=== PATIENT | female | born 1995 | race Asian ===

== ENCOUNTER 2024-03-17 00:10 | Inpatient (IN) | payer OTHER ==
[2024-03-17 00:39] VITALS: BMI 28.1
[2024-03-17] MEDS ORDERED: Ondansetron PF 4 MG/2 ML Vial IVP PRN (01:45)
[2024-03-17] MEDS ORDERED: Carboprost 250 MCG/ML AMP IM PRN (01:45)
[2024-03-17] MEDS ORDERED: Promethazine HCl 25 MG/ML VIAL IM PRN ×2 (01:45→11:49)
[2024-03-17] MEDS ORDERED: hydrALAZINE 20 MG/ML VIAL SLOW IVP PRN (01:45)
[2024-03-17] MEDS ORDERED: fentaNYL 50 mcg/mL 1 mL Vial SLOW IVP PRN (01:45)
[2024-03-17] MEDS ORDERED: Lidocaine 1% (PF) 30 ML VIAL SC PRN (01:45)
[2024-03-17] MEDS ORDERED: Acetaminophen 500 MG TAB PO PRN (01:45)
[2024-03-17] MEDS ORDERED: Diphenoxylate HCl/Atropine Tablet PO PRN ×2 (01:45)
[2024-03-17 04:25] LABS: Hematocrit 35.3 % (34.9-44.5); Hemoglobin 12.2 g/dL (12.0-15.5); Mean Corpuscular HGB CONC 34.6 g/dL (32.0-36.0); Mean Corpuscular Volume 86.7 fL (81.6-98.3); Mean Platelet Volume 9.9 fL (7.4-10.4); Platelet Count 202 10x3/uL (150-450); RBC Distribution Width 13.3 % (11.5-14.5); Red Blood Cell (RBC) Count 4.07 10x6/uL (3.90-5.03); White Blood Cell (WBC) Count 11.13 10x3/uL (3.5-10.5)
[2024-03-17 04:54] LABS: HBsAg Index 0.15 S/CO (0-0.99); Hep B Surf Ag - L&D Non-Reactive S/CO (NonReactive)
[2024-03-17 04:55] LABS: Syphilis Antibody Nonreactive (Nonreactive); Syphilis Antibody Index 0.05 S/CO (<1.00 Non-Reactive)
[2024-03-17] MEDS: Oxytocin 30 units/NS 500 ML 500 ML IV SCH ×2 (06:25→23:49)
[2024-03-17] MEDS: Lactated Ringer's 1,000 ML IV SCH ×2 (07:14)
[2024-03-17] MEDS: fentaNYL/Ropivacaine Epidural 100 ML ONE (11:20)
[2024-03-17] MEDS ORDERED: diphenhydrAMINE 50 MG/ML VIAL IVP PRN (11:49)
[2024-03-17] MEDS ORDERED: Moisturizing Cream (Eucerin) 113 GM JAR TOP PRN (11:49)
[2024-03-17] MEDS ORDERED: Lactated Ringer's 500 ML IV PRN (11:49)
[2024-03-17] MEDS ORDERED: ePHEDrine Sulfate 50 MG/10 ML VIAL SLOW IVP PRN (11:49)
[2024-03-17] MEDS ORDERED: Naloxone HCl 0.4 mg/ml Vial IVP PRN ×2 (11:49)
[2024-03-17] MEDS ORDERED: Communication Order-Pharmacy FS SCH (12:00)
[2024-03-17] MEDS ORDERED: fentaNYL 2 mcg/Ropivacaine 0.2% Epidural 100 ML CADD EPIDURAL SCH (12:00)
[2024-03-17] MEDS ORDERED: Pseudoephedrine HCl 30 MG TAB PO PRN (18:13)
[2024-03-17] MEDS: Calcium Carbonate 500 MG ChewTAB PO SCH (18:21)
[2024-03-17] MEDS: Acetaminophen 325 MG TAB PO PRN (18:21)
[2024-03-17] MEDS: Ondansetron PF 4 MG/2 ML Vial IVP PRN (20:35)
[2024-03-17] MEDS: Misoprostol 200 MCG TAB RC PRN (23:16)
[2024-03-17] MEDS: Methylergonovine 0.2 MG/ML VIAL IM PRN (23:16)
[2024-03-17] MEDS: Tranexamic Acid 1,000 MG/10 ML VIAL IVP PRN (23:49)
[2024-03-18] MEDS ORDERED: Lanolin Ointment 7 GM TUBE TOP PRN (00:59)
[2024-03-18] MEDS ORDERED: Promethazine HCl 25 MG/ML VIAL IM PRN (00:59)
[2024-03-18] MEDS ORDERED: Bisacodyl 10 MG SUPP PR PRN (00:59)
[2024-03-18] MEDS ORDERED: Milk Of Magnesia 30 ML UDCUP PO PRN (00:59)
[2024-03-18] MEDS ORDERED: Preparation H Ointment 28 GM TUBE PR PRN (00:59)
[2024-03-18] MEDS ORDERED: Ondansetron PF 4 MG/2 ML Vial IVP PRN (00:59)
[2024-03-18] MEDS ORDERED: hydrALAZINE 20 MG/ML VIAL SLOW IVP PRN (00:59)
[2024-03-18] MEDS: Benzocaine-Menthol 82.5 ML CAN TOP PRN (03:47)
[2024-03-18] MEDS: Boostrix 0.5 ML (Tdap) VIAL (>/=7 yrs of age) IM ONE (03:54)
[2024-03-18 05:36] LABS: Hematocrit 30.6 % (34.9-44.5)
[2024-03-18] MEDS: Ferrous Sulfate 325 MG TAB PO SCH (07:21)
[2024-03-18] MEDS: Prenatal Vitamin 1 TAB PO SCH (07:48)
[2024-03-18] MEDS: HYDROcodone/Acetaminophen 5/325 mg Tablet PO PRN (07:49)
[2024-03-18] MEDS: Docusate 100 MG CAP PO SCH (07:49)
[2024-03-18] MEDS: Naproxen 500 MG TAB PO SCH (10:41)
[2024-03-18] MEDS: Guaifenesin DM 100-10/5 ML UDCUP PO PRN (10:41)
[2024-03-18] MEDS: Benzocaine/Menthol 1 LOZ LOZ PO PRN (10:43)
[2024-03-18] MEDS: diphenhydrAMINE 25 MG CAP PO PRN (12:05)
[2024-03-18] MEDS ORDERED: traMADol HCl 50 MG TAB PO PRN (17:03)
[2024-03-18] MEDS: Acetaminophen 325 MG TAB PO SCH (18:16)
[2024-03-19 07:47] VITALS: BP 99/64; TEMP 97.7
[2024-03-19] MEDS: HYDROcodone/Acetaminophen 5/325 mg Tablet PO PRN (16:31)
== END 2024-03-19 17:35 | disposition home or self-care (01) | DRG 807 ==
LOC: CSHLD/OP 00:10 → CSHLD 01:51 → CSHPP 03-18 01:35
PROVIDERS: ADMIT Student in an Organized Health Care Education/Training Program; ATTEND Student in an Organized Health Care Education/Training Program
PROC: 10E0XZZ Delivery of Products of Conception, External Approach (ICD-10-PCS; principal; 2024-03-17)
PROC: 0KQM0ZZ Repair Perineum Muscle, Open Approach (ICD-10-PCS; 2024-03-17)
DX: O42.02 Full-term premature rupture of membranes, onset of labor within 24 hours of rupture (principal); Z37.0 Single live birth; Z3A.37 37 weeks gestation of pregnancy; O24.429 Gestational diabetes mellitus in childbirth, unspecified control; O34.211 Maternal care for low transverse scar from previous cesarean delivery; Z88.8 Allergy status to other drugs, medicaments and biological substances; O70.1 Second degree perineal laceration during delivery
CPT/HCPCS: 36415; 36416; 51702; 85014; 85018; 85027; 86780; 86850; 86900; 86901; 87340; 99285; J2210; J2405; J2590; J7120